=== PATIENT | male | born 1990 | race African-American/Black ===

== ENCOUNTER 2016-09-23 14:49 | Emergency (ER) | payer MEDICAID, OTHER ==
[~2016-09-23] VITALS: Ht 182.9 cm; Wt 86.0 kg
[~2016-09-23 14:49] MED LIST: BENZ1TAB10 PO; RISP3 PO
[2016-09-23 17:53] VITALS: BP 134/84
[2016-09-23] MEDS ORDERED: IBUPROFEN 800 MG TABLET PO ONE (18:45)
== END 2016-09-23 18:49 | disposition home or self-care (01) ==
LOC: EMS 14:51
DX: S80.02XA Contusion of left knee, initial encounter (principal); F12.90 Cannabis use, unspecified, uncomplicated; F17.210 Nicotine dependence, cigarettes, uncomplicated; W22.8XXA Striking against or struck by other objects, initial encounter; Y93.89 Activity, other specified; Y92.89 Other specified places as the place of occurrence of the external cause; Y99.8 Other external cause status
CPT/HCPCS: 99284; 99406

== ENCOUNTER → 2018-04-18 | Emergency (ER) | payer OTHER ==
[~2018-04-18] VITALS: Ht 185.4 cm; Wt 64.1 kg
[~2018-04-18] MED LIST changes: +ACETAMINOPHEN 500 MG TABLET PO ONE; +AMOX TR/POT CLAV 875 MG/125 MG TABLET PO ONE; +AMPICILLIN SODIUM/SULBACTAM NA 3 GM in SODIUM CHLORIDE 0.9% 100 ML IV ONE; +PERTUSS(ACELL),DIPH,TET VAC/PF 0.5 ML VIAL IM ONE
[2018-04-18 18:19] VITALS: BP 151/102
== END | disposition home or self-care (01) ==
LOC: EMS 14:23
DX: S61.401A Unspecified open wound of right hand, initial encounter (principal); L03.113 Cellulitis of right upper limb; M79.89 Other specified soft tissue disorders; I10 Essential (primary) hypertension; F20.9 Schizophrenia, unspecified; F17.210 Nicotine dependence, cigarettes, uncomplicated; F12.90 Cannabis use, unspecified, uncomplicated; W50.0XXA Accidental hit or strike by another person, initial encounter; Y93.71 Activity, boxing; Y92.89 Other specified places as the place of occurrence of the external cause; Y99.8 Other external cause status
CPT/HCPCS: 99283; J0295; J7050